=== PATIENT | male | born 1985 | race Caucasian/White ===

== ENCOUNTER 2017-06-06 18:26 | Emergency (ER) | payer SELFPAY ==
[2017-06-06 18:51] VITALS: BP 121/76
--- NOTE | 2017-06-06 19:11 | UC ---
Elbow Pain - HPI Summary HPI Summary: Approx 2 weeks ago pt tripped and fell on concrete floor at work. R elbow started hurting immediately and pt experienced weakness and loss of ROM. Did not have significant bruising or swelling so he was not overly concerned. Pain is feeling better now, but he still has somewhat diminished ROM and cannot lift heavy loads (which is part of his job) with his R arm at all. - History of Current Complaint Chief Complaint: UCUpperExtremity Stated Complaint: ELBOW INJURY Time Seen by Provider: 06/06/17 18:52 Hx Obtained From: Patient Onset/Duration: Weeks, Traumatic Severity Initially: Moderate Severity Currently: Moderate Location Of Pain: Is Discrete @ Character: Dull, Aching, Stiffness Aggravating Factor(s): Movement Alleviating Factor(s): Rest - Allergies/Home Medications Allergies/Adverse Reactions: Allergies Allergy/AdvReac Type Severity Reaction Status Date / Time No Known Allergies Allergy Verified 06/06/17 18:51 Home Medications: Home Medications NK [No Home Medications Reported] 06/06/17 [History Confirmed 06/06/17] PMH/Surg Hx/FS Hx/Imm Hx Previously Healthy: Yes - Surgical History Surgical History: None - Family History Known Family History: Positive: Hypertension - Social History Occupation: Employed Full-time - [employer] Alcohol Use: None Substance Use Type: None Smoking Status (MU): Never Smoked Tobacco Review of Systems Constitutional: Negative Skin: Negative Eyes: Negative ENT: Negative Respiratory: Negative Cardiovascular: Negative Gastrointestinal: Negative Genitourinary: Negative Motor: Negative Neurovascular: Negative Musculoskeletal: Arthralgia, Decreased ROM - R elbow Neurological: Negative Psychological: Negative All Other Systems Reviewed And Are Negative: Yes Physical Exam Triage Information Reviewed: Yes Appearance: Well-Appearing, No Pain Distress, Obese Vital Signs: Initial Vital Signs Temp 98.6 F 06/06/17 18:46 Pulse 83 06/06/17 18:46 Resp 18 06/06/17 18:46 BP 121/76 06/06/17 18:46 Pulse Ox 97 06/06/17 18:46 Vital Signs Reviewed: Yes Eye Exam: Normal Eyes: Positive: Conjunctiva Clear ENT Exam: Normal ENT: Positive: Normal ENT inspection, Hearing grossly normal, Pharynx normal, TMs normal Dental Exam: Normal Neck exam: Normal Neck: Positive: Supple, Nontender, No Lymphadenopathy Respiratory Exam: Normal Respiratory: Positive: Chest non-tender, Lungs clear, Normal breath sounds, No respiratory distress, No accessory muscle use Cardiovascular Exam: Normal Cardiovascular: Positive: RRR, No Murmur Musculoskeletal: Positive: ROM Limited @ - R elbow; can nearly flex and extend fully, but certain rotations with movement, like touching head or own face, are still difficult. Some tenderness near radial head Neurological Exam: Normal Neurological: Positive: Alert Psychological Exam: Normal Skin Exam: Normal Elbow Pain Course/Dx - Differential Dx/Diagnosis Provider Diagnoses: R radial head fracture closed, impacted Discharge - Discharge Plan Condition: Stable Disposition: HOME Patient Education Materials: Elbow Fracture (ED) Forms: *Work Release Referrals: Rosalba Ren MD [Medical Doctor] - 5 Days
--- NOTE | 2017-06-06 19:50 | RAD ---
INDICATION: Right elbow pain since a fall 2 weeks earlier COMPARISON: None. TECHNIQUE: 4 views right elbow. REPORT: Multiple views there is cortical discontinuity involving the lateral aspect of the right radial head. Remaining visualized bones are intact and appropriately aligned. Despite this potential subacute fracture there is no significant elbow effusion. IMPRESSION: Minimally displaced fracture involving the right radial head without discernible joint effusion. If the patient's symptoms persist further follow-up imaging is recommended.
== END 2017-06-06 20:05 | disposition home or self-care (01) ==
LOC: UCEAST 18:26
DX: S52.121A Displaced fracture of head of right radius, initial encounter for closed fracture (principal); W01.0XXA Fall on same level from slipping, tripping and stumbling without subsequent striking against object, initial encounter; Y93.9 Activity, unspecified; Y92.9 Unspecified place or not applicable; Y99.9 Unspecified external cause status
CPT/HCPCS: 99201; G0463

== ENCOUNTER 2019-07-05 23:30 | Emergency (ER) | payer OTHER ==
[2019-07-06] MEDS ORDERED: oxyCODONE TAB* 5 MG TAB PO ONE (00:40)
--- NOTE | 2019-07-06 00:43 | ED ---
Throat Pain/Nasal Congestion - HPI Summary HPI Summary: Patient complains of left-sided dental pain. History of same times a month, worse tonight. Pain described as intermittent, worse with chewing. Denies fever, cough, sore throat, CP, SOB, N/3/D, bowel pain, change in urine, change in BM. Patient has not seen dentist in a while. - History of Current Complaint Chief Complaint: EDDentalPain Time Seen by Provider: 07/06/19 00:30 Hx Obtained From: Patient Onset/Duration: Gradual Onset, Lasting Weeks Severity: Moderate Associated Signs And Symptoms: Positive: Negative Cough: None - Allergies/Home Medications Allergies/Adverse Reactions: Allergies Allergy/AdvReac Type Severity Reaction Status Date / Time No Known Allergies Allergy Verified 07/05/19 23:33 PMH/Surg Hx/FS Hx/Imm Hx Endocrine/Hematology History: Denies: Hx Anticoagulant Therapy Cardiovascular History: Denies: Hx Pacemaker/ICD Respiratory History: Reports: Hx Asthma History: Denies: Hx Dialysis Sensory History: Denies: Hx Legally Blind Opthamlomology History: Denies: Hx Eye Prosthesis EENT History: Denies: Hx Deafness Neurological History: Denies: Hx Developmental Delay Infectious Disease History: No Infectious Disease History: Denies: Traveled Outside the [place] in Last 30 Days - Family History Known Family History: Positive: Hypertension - Social History Alcohol Use: None Substance Use Type: Reports: None Smoking Status (MU): Never Smoked Tobacco Review of Systems Constitutional: Negative Eyes: Negative Positive: Dental Pain Cardiovascular: Negative Respiratory: Negative Gastrointestinal: Negative Genitourinary: Negative Musculoskeletal: Negative Skin: Negative Neurological: Negative Psychological: Normal All Other Systems Reviewed And Are Negative: Yes Physical Exam - Summary Physical Exam Summary: Full range of motion motion of jaw without pain. Multiple dental caries. No evidence of apical abscess or infection. No intraoral lesions noted. Triage Information Reviewed: Yes Vital Signs On Initial Exam: Initial Vitals Temp Pulse Resp BP Pulse Ox 97.9 F 78 16 142/87 96 07/05/19 23:30 07/05/19 23:30 07/05/19 23:30 07/05/19 23:30 07/05/19 23:30 Vital Signs Reviewed: Yes Appearance: Positive: Well-Appearing Skin: Positive: Warm Head/Face: Positive: Normal Head/Face Inspection Eyes: Positive: Normal ENT: Positive: Normal ENT inspection Dental: Positive: Gross Decay/Caries @. Negative: Dental Fracture @, Abscess @ Neck: Positive: Supple Respiratory/Lung Sounds: Positive: Clear to Auscultation Cardiovascular: Positive: Normal Abdomen Description: Positive: Nontender Musculoskeletal: Positive: Normal Neurological: Positive: Normal Psychiatric: Positive: Normal AVPU Assessment: Alert - [place] Coma Scale Best Eye Response: 3 - To Speech Best Verbal Response: 5 - Oriented Diagnostics - Vital Signs Vital Signs Temp Pulse Resp BP Pulse Ox 07/05/19 23:30 97.9 F 78 16 142/87 96 - Laboratory Lab Statement: Any lab studies that have been ordered have been reviewed, and results considered in the medical decision making process. EENT Course/Dx - Course Course Of Treatment: Patient complains of left-sided dental pain. History of same times a month, worse tonight. Pain described as intermittent, worse with chewing. Denies fever, cough, sore throat, CP, SOB, N/3/D, bowel pain, change in urine, change in BM. Patient has not seen dentist in a while. Vital signs within normal limits. Rx for oxycodone and pen VK. Follow-up with dentist per - Diagnoses Provider Diagnoses: Pain, dental, Dental caries Discharge - Sign-Out/Discharge Documenting (check all that apply): Patient Departure Patient Received Moderate/Deep Sedation with Procedure: No - Discharge Plan Condition: Stable Disposition: HOME Prescriptions: Oxycodone HCl 5 mg PO TID 2 Days #4 tablet MDD 3 tabs Penicillin VK 500 MG TAB(NF) [Penicillin VK 500 mg Tab] 500 mg PO QID 7 Days # 28 tab Patient Education Materials: Toothache (ED) Referrals: No Primary Care Phys,NOPCP [Primary Care Provider] - Additional Instructions: Follow-up with your dentist as soon as possible. Alternate ibuprofen 600 mg with Tylenol 650 mg every 3 hours for pain. - Billing Disposition and Condition Condition: STABLE Disposition: Home
[2019-07-06 01:34] VITALS: BP 130/75
== END 2019-07-06 01:15 | disposition home or self-care (01) ==
LOC: ED 23:30
DX: K08.89 Other specified disorders of teeth and supporting structures (principal); K02.9 Dental caries, unspecified
CPT/HCPCS: 99282; A9270-GY